=== PATIENT | female | born 1965 | race Caucasian/White ===

== ENCOUNTER → 2016-08-08 | Outpatient (CLI) | payer BC ==
--- NOTE | 2016-08-08 14:22 | KCIC ---
PROCEDURE MRI of the lumbar spine without contrast 08/08/2016 HISTORY Left groin pain for 2-3 months. TECHNIQUE Unenhanced T1 weighted and T2 weighted sagittal and axial and inversion recovery sagittal images of the lumbar spine were obtained. FINDINGS Comparison is made to a radiograph of the pelvis performed at [facility] dated 08/02/2016. The patient appears to have transitional vertebral anatomy. For the purposes of this dictation 5 lumbar vertebrae have been assumed. L5 is partially sacralized on the right. Ahypoplastic disc is seen at L5-S1. Degenerative signal changes are seen involving the L2-3 and L4-5 discs. Degenerative signal changes are seen within the marrow surrounding these discs. The conus medullaris is normal in morphology, position, and signal characteristics. On the axial images the changes of mild degenerative disc disease are seen involving the mid and lower lumbar disc spaces. These consist of minimal to mild generalized disc bulges, degenerative changes involving the facet joints and mild ligamentum flavum hypertrophy. These findings do not result in significant central spinal canal or neural foraminal stenosis. IMPRESSION The changes of mild degenerative disc disease are seen involving the mid and lower lumbar spine. These findings do not result in significant central spinal canal or neural foraminal stenosis at any level. Electronically signed by: Emiliano Henley MD (Aug 08, 2016 14:21:48)
== END | disposition home or self-care (01) ==
LOC: KCIC MRI 12:37
PROVIDERS: ATTEND Physician Assistant Medical
DX: M51.36 Other intervertebral disc degeneration, lumbar region (principal); M47.896 Other spondylosis, lumbar region; R93.8 Abnormal findings on diagnostic imaging of other specified body structures
CPT/HCPCS: 72148

== ENCOUNTER → 2021-01-12 | Outpatient (CLI) | payer BC ==
--- NOTE | 2021-01-12 14:26 | KCIC ---
Exam Date: 01/12/2021 12:40 PM MRI LEFT LOWER EXTREMITY JOINT WITHOUT Indication: Reason: LEFT KNEE PAIN / Spl. Instructions: / History: Left knee pain for 3 weeks after an injury working out. Pain is anterior.. TECHNIQUE: Routine multiplanar MR imaging of the knee was performed without contrast. FINDINGS: There is mild blunting of the posterior horn of the medial meniscus consistent with a small radial te ar. The lateral meniscus is intact and within normal limits for age. The anterior cruciate ligament, posterior cruciate ligament, medial collateral ligament, and lateral collateral ligament complex are intact. Patellofemoral extensor mechanism and popliteus tendon are w ithin normal limits. Multifocal full-thickness chondral defects are seen in the patellofemoral compartment with mild to mo derate subchondral degenerative marrow signal. There is mild diffuse chondral thinning in the medial compartment without full-thickness chondral loss. There is full-thickness chondral loss at the periph [place]in of the lateral compartment with subchondral cystic degenerative changes. Small tricompartment osteophytes are present. There is no acute fracture. There is a small joint effusion. There is no popliteal cyst. IMPRESSION: There is a small radial tear in the posterior horn of the medial meniscus. Full-thickness chondral loss is seen in the patellofemoral and lateral compartments. Electronically signed by: Matheus Loza MD (01/12/2021 2:23 PM) [id number]
== END ==
LOC: KCIC MRI 12:32
PROVIDERS: ATTEND Physician Assistant Medical
DX: S83.242A Other tear of medial meniscus, current injury, left knee, initial encounter (principal); M25.462 Effusion, left knee; X58.XXXA Exposure to other specified factors, initial encounter; Y93.89 Activity, other specified; Y92.89 Other specified places as the place of occurrence of the external cause; Y99.8 Other external cause status
CPT/HCPCS: 73721

== ENCOUNTER → 2021-09-21 | Outpatient (CLI) | payer BC ==
--- NOTE | 2021-09-21 11:36 | KCIC ---
EXAM: MRI right shoulder DATE: 09/21/2021 10:15 AM COMPARISON: None INDICATION: RIGHT SHOULDER PAIN / Spl. Instructions: / History: Chronic right shoulder pain for 6 m ths. NKI, maybe working out. TECHNIQUE: Multiplanar, multisequence MRI of the right shoulder was performed without contrast. FINDINGS: AC joint degenerative changes with small a.c. osteophytes with mild capsular edema. Mild lateral down sloping of the acromion. No os acromiale. Type I acromion. Subacromial-subdeltoid bursal distention, bursitis. There is a focal full-thickness tear of the anterior supraspinatus tendon. This extends posteriorly a s a partial-thickness articular sided tear measuring 1.7 cm in AP dimension. Low-grade strain of the infraspinatus myotendinous junction. No fatty atrophy. Intra-articular long head biceps tendon is intact. No discrete labral tear. Articular cartilage is preserved. No fracture or osteonecrosis. IMPRESSION: 1. Focal full-thickness articular sided tear of the anteriormost supraspinatus tendon extending post eriorly as a partial-thickness articular sided tear. 2. Subacromial-subdeltoid bursal distention, bursitis. 3. Low-grade strain infraspinatus myotendinous junction 4. AC joint DJD. 5. Mild intra-articular long head biceps tendinosis. Electronically signed by: Sami Shore MD (09/21/2021 11:34 AM) [id number]
== END ==
LOC: KCIC MRI 09:33
PROVIDERS: ATTEND Physician Assistant Medical
DX: M75.121 Complete rotator cuff tear or rupture of right shoulder, not specified as traumatic (principal); M75.51 Bursitis of right shoulder; M19.011 Primary osteoarthritis, right shoulder; M75.41 Impingement syndrome of right shoulder
CPT/HCPCS: 73221